=== PATIENT | male | born 1980 | race Caucasian/White ===

== ENCOUNTER → 2017-05-27 | Outpatient (CLI) | payer MEDICARE, OTHER ==
--- NOTE | 2017-05-27 11:00 | US ---
EXAMINATION TYPE: US venous doppler duplex LE DATE OF EXAM: 05/27/2017 10:33 AM COMPARISON: LOWER EXTREMITY VENOUS INSUFFICIENCY SIDE PERFORMED: Bilateral 1) Color flow is present and patency is documented in the following vessels. EIV Common Femoral Vein Deep Femoral Vein Femoral Vein Popliteal Vein Proximal Calf Veins Greater Saph Vein Upper Small Saph Vein 2) There is venous reflux noted at the following venous levels: Right: EIV Common Femoral Vein Deep Femoral Vein Femoral Vein Popliteal Vein Proximal Calf Veins Upper Small Saph Vein Left: EIV Common Femoral Vein Deep Femoral Vein Lower Femoral Vein Mid Popliteal vein Greater Saph Vein There is non-occluding DVT visualized in the right leg from the right CFV to the right lower poplitea l vein. No evidence of left-sided DVT. IMPRESSION: 1.There is non-occluding DVT visualized in the right leg from the right CFV to the right lower poplit eal vein. No evidence of left-sided DVT. 2. Venous reflux as noted above.
== END | disposition home or self-care (01) ==
LOC: RADUSWWP 09:33
PROVIDERS: ATTEND Surgery
DX: I82.411 Acute embolism and thrombosis of right femoral vein (principal); I82.431 Acute embolism and thrombosis of right popliteal vein; I87.2 Venous insufficiency (chronic) (peripheral)
CPT/HCPCS: 93970

== ENCOUNTER 2017-12-26 22:13 | Emergency (ER) | payer MEDICARE, OTHER ==
--- NOTE | 2017-12-26 22:43 | ED ---
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 Patient has vascular ulcers to the bilateral lower extremities for which she follows with Dr. Lazaro vascular surgery. The patient is seen once a week to have his legs were wrapped. She was seen yesterday and had his legs rewrapped. He has been advised that he needs to stay off of his feet as much as possible to facilitate healing, however the patient reports that he has just moved into a new house in his been moving and settling in, in addition the patient does not get disability and does have a job and has been working. 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 He reports that he noticed that his left leg began bleeding. The patient does take is a row toe, he reports the bleeding persisted for an hour and a half which prompted him to come to the ER for further evaluation. At the time of arrival he still had his legs wrapped but it noted that the bleeding has soaked through his route through his sock Patient reports 10 out of 10 pain in the foot, he reports that he has this pain constantly, it's worse with the dressing changes and he has concern about removal of the dressing. Patient reports he has requested multiple times to have his legs amputated due to the chronic pain in the chronic ulcers, however this has been declined by his vascular surgeon. - Related Data Home Medications Medication Instructions Recorded Confirmed Apixaban [Eliquis] 5 mg PO BID 12/26/17 12/26/17 Digoxin [Lanoxin] 125 mcg PO DAILY 12/26/17 12/26/17 Flecainide [Tambocor] 50 mg PO BID 12/26/17 12/26/17 Gabapentin [Neurontin] 200 mg PO Q12H 12/26/17 12/26/17 Ibuprofen [Motrin] 800 mg PO TID PRN 12/26/17 12/26/17 Lisinopril [Prinivil] 20 mg PO DAILY 12/26/17 12/26/17 Sotalol [Betapace] 160 mg PO BID 12/26/17 12/26/17 Allergies Allergy/AdvReac Type Severity Reaction Status Date / Time No Known Allergies Allergy Verified 12/26/17 22:25 Review of Systems ROS Statement: Those systems with pertinent positive or pertinent negative responses have been documented in the HPI. ROS Other: All systems not noted in ROS Statement are negative. Past Medical History Past Medical History: Atrial Fibrillation Additional Past Medical History / Comment(s): hypoplastic heart (R), hole in heart,heart murmur, chronic vascular disease, chronic ulcers on bilateral feet History of Any Multi-Drug Resistant Organisms: None Reported Past Surgical History: Pacemaker Past Psychological History: No Psychological Hx Reported Smoking Status: Current every day smoker Past Alcohol Use History: Rare Past Drug Use History: None Reported General Exam Limitations: no limitations General appearance: alert, in distress Head exam: Present: atraumatic, normocephalic Eye exam: Present: PERRL ENT exam: Present: normal exam Neck exam: Present: full ROM Respiratory exam: Absent: respiratory distress Cardiovascular Exam: Present: regular rate, irregular rhythm, systolic murmur, diastolic murmur, other (No right radial pulse secondary to arterial grafting for his surgery as a .). Absent: normal heart sounds GI/Abdominal exam: Present: soft. Absent: distended Rectal exam: Present: deferred Extremities exam: Present: full ROM, other (Lower extremities are atrophied, pale, there is no hair growth, they appear to have chronic arterial disease, the left leg was unwrapped and noted to have ulcers on the medial malleolus, no active bleeding was noted.) Neurological exam: Present: alert, oriented X3 Psychiatric exam: Present: agitated Skin exam: Present: other (Ulcer on left medial malleolus as noted above) Course Vital Signs 12/26/17 22:19 Temperature 98.1 F Pulse Rate 71 Respiratory 20 Rate Blood Pressure 122/58 O2 Sat by Pulse 97 Oximetry Medical Decision Making - Medical Decision Making The patient was seen and evaluated, history is obtained from the patient, patient very agitated requesting Dilaudid immediately. Patient's leg was unwrapped, there is no active bleeding, there was a significant ulcer to the left medial malleolus, is an arterial ulcer secondary to peripheral artery disease. No signs of infection Patient concerned that there may be infection causing the bleeding, CBC BMP were ordered, morphine ordered for pain management. Labs were reviewed, no leukocytosis was noted, hemoglobin stable Patient reported some improvement in his pain with morphine, patient was observed for over an hour with no recurrent bleeding of his ulcer Expressing considerable frustration with his medical conditions, and desire to have his legs amputated. I advised them that secondary to his complex cardiac history he likely needs to be evaluated by his cardiothoracic surgeon to coordinate for any major surgeries including amputation. Advised him that I can refer him to a different vascular surgeon for evaluation of his legs but likely his surgery will need to be correlated through the [facility] patient's breast understanding of this. Patient remained hemodynamically stable and no bleeding was noted, his leg was wrapped and he was discharged home with referrals for vascular surgery and advised to follow-up with cardiothoracic surgery. He turned parameters were discussed. Patient was advised to stay off of his foot which she has been advised to do so by his vascular surgeon, patient stated that that is not an option for him because he owns a large house and has to work. I offered a work note the patient stated that he didn't need it he cannot afford to be off work. - Lab Data Result diagrams: 12/26/17 22:35 12/26/17 22:35 Lab Results 12/26/17 12/26/17 Range/Units 22:35 22:35 WBC 5.7 (3.8-10.6) k/uL RBC 5.34 (4.30-5.90) m/uL Hgb 15.4 (13.0-17.5) gm/dL Hct 47.5 (39.0-53.0) % MCV 89.0 (80.0-100.0) fL MCH 28.8 (25.0-35.0) pg MCHC 32.3 (31.0-37.0) g/dL RDW 13.0 (11.5-15.5) % Plt Count 142 L (150-450) k/uL Neutrophils % 53 % Lymphocytes % 33 % Monocytes % 8 % Eosinophils % 5 % Basophils % 1 % Neutrophils # 3.0 (1.3-7.7) k/uL Lymphocytes # 1.8 (1.0-4.8) k/uL Monocytes # 0.4 (0-1.0) k/uL Eosinophils # 0.3 (0-0.7) k/uL Basophils # 0.0 (0-0.2) k/uL Sodium 139 (137-145) mmol/L Potassium 4.7 (3.5-5.1) mmol/L Chloride 107 (98-107) mmol/L Carbon Dioxide 22 (22-30) mmol/L Anion Gap 10 mmol/L BUN 24 H (9-20) mg/dL Creatinine 0.90 (0.66-1.25) mg/dL Est GFR (CKD-EPI)AfAm >90 (>60 ml/min/1.73 sqM) Est GFR (CKD-EPI)NonAf >90 (>60 ml/min/1.73 sqM) Glucose 97 (74-99) mg/dL Calcium 10.0 (8.4-10.2) mg/dL Disposition Clinical Impression: Arterial insufficiency with ischemic ulcer Disposition: HOME SELF-CARE Condition: Stable Is patient prescribed a controlled substance at d/c from ED?: No Referrals: None,Stated [Primary Care Provider] - 1-2 days Marylin Baird, [REFERRING] - 1-2 days Time of Disposition: 23:54
[2017-12-26] MEDS ORDERED: diphenhydrAMINE 50 MG/ML 1 ML VIAL IVP STA (23:03)
[2017-12-26] MEDS ORDERED: MORPHINE SULFATE 4 MG/ML SYRINGE IVP STA (23:03)
[2017-12-26 23:17] LABS: Basophils % (A) 1 %; Eosinophils # (A) 0.3 k/uL (0-0.7); Eosinophils % (A) 5 %; HCT 47.5 % (39.0-53.0); HGB 15.4 gm/dL (13.0-17.5); Lymphocytes # (A) 1.8 k/uL (1.0-4.8); Lymphocytes % (A) 33 %; MCH 28.8 pg (25.0-35.0); MCHC 32.3 g/dL (31.0-37.0); Mean Platelet Volume 7.2; Monocytes # (A) 0.4 k/uL (0-1.0); Monocytes % (A) 8 %; Neutrophils % (A) 53 %; Platelet Count 142 k/uL (150-450); RBC 5.34 m/uL (4.30-5.90); WBC 5.7 k/uL (3.8-10.6)
[2017-12-26 23:26] LABS: Anion Gap 10 mmol/L; Blood Urea Nitrogen 24 mg/dL (9-20); Carbon Dioxide 22 mmol/L (22-30); Chloride 107 mmol/L (98-107); Glucose 97 mg/dL (74-99); Potassium 4.7 mmol/L (3.5-5.1); Sodium 139 mmol/L (137-145)
[2017-12-27 00:17] VITALS: BP 125/81; PULSE 81; RESP 18; TEMP 97.6
== END 2017-12-27 00:19 | disposition home or self-care (01) ==
LOC: EC 22:13
DX: I77.1 Stricture of artery (principal); L97.529 Non-pressure chronic ulcer of other part of left foot with unspecified severity; I48.91 Unspecified atrial fibrillation; F17.200 Nicotine dependence, unspecified, uncomplicated; Z79.01 Long term (current) use of anticoagulants; Z79.899 Other long term (current) drug therapy; Z95.0 Presence of cardiac pacemaker
CPT/HCPCS: 36415; 80048; 85025; 99284; 96374; 96375; J2270; J1200

== ENCOUNTER 2024-02-11 09:55 | Emergency (ER) | payer MEDICARE, OTHER ==
[2024-02-11 10:04] VITALS: RESP 18; TEMP 97.3
--- NOTE | 2024-02-11 10:28 | ED ---
Chest Pain HPI - General Chief Complaint: Chest Pain Stated Complaint: chest pain Time Seen by Provider: 02/11/24 10:07 Source: patient, RN notes reviewed Mode of arrival: wheelchair Limitations: no limitations - History of Present Illness Initial Comments: This is a 43 year old male who presents to the emergency department for chest pain. States that it started 2 months ago but is getting worse. Pain is described as a pressure and is essentially constant. Reports associated shortness of breath. Patient has a substantial cardiac history, including hy poplastic heart syndrome, heart failure, and a-fib. He has had multiple cardiac surgeries and still follows with [facility]. States that he called his weight clerk's office regarding his symptoms and was advised to come to the emergency department for evaluation and possible transfer to their facility for evaluation. He spoke with Dr. Benjamin Kinney directly. States that he is also on the list for a heart transplant. MD Complaint: chest pain - Related Data Home Medications Medication Instructions Recorded Confirmed Apixaban [Eliquis] 5 mg PO BID 12/26/17 02/11/24 Sotalol [Betapace] 120 mg PO BID 02/11/24 02/11/24 lisinopriL [Zestril] 5 mg PO DAILY 02/11/24 02/11/24 Allergies Allergy/AdvReac Type Severity Reaction Status Date / Time No Known Allergies Allergy Verified 02/11/24 13:49 Review of Systems ROS Statement: Those systems with pertinent positive or pertinent negative responses have been documented in the HPI. ROS Other: All systems not noted in ROS Statement are negative. Past Medical History Past Medical History: Atrial Fibrillation Additional Past Medical History / Comment(s): hypoplastic heart (R), hole in heart,heart murmur, chronic vascular disease, chronic ulcers on bilateral feet History of Any Multi-Drug Resistant Organisms: None Reported Past Surgical History: Heart Catheterization, Heart Catheterization With Stent, Pacemaker Additional Past Surgical History / Comment(s): 2 tripple bypass, 2 open hearts, double amputations to christiana lower legs Past Psychological History: No Psychological Hx Reported Smoking Status: Never smoker Past Alcohol Use History: Rare Past Drug Use History: None Reported General Exam Limitations: no limitations General appearance: alert, in no apparent distress Head exam: Present: atraumatic, normocephalic, normal inspection Respiratory exam: Present: normal lung sounds bilaterally. Absent: respiratory distress, wheezes, rales, rhonchi, stridor, chest wall tenderness Cardiovascular Exam: Present: regular rate, normal rhythm Neurological exam: Present: alert, oriented X3, CN II-XII intact Psychiatric exam: Present: normal affect, normal mood Skin exam: Present: warm, dry, intact, normal color. Absent: rash Course Vital Signs 02/11/24 02/11/24 02/11/24 09:58 12:28 15:00 Temperature 97.3 F L Pulse Rate 76 67 71 Respiratory 18 18 18 Rate Blood Pressure 110/71 93/60 116/81 O2 Sat by Pulse 92 L 97 97 Oximetry 02/11/24 17:48 Temperature Pulse Rate 78 Respiratory 18 Rate Blood Pressure 118/80 O2 Sat by Pulse 95 Oximetry Chest Pain MDM - MDM This is a 43 year old male who presents to the emergency department for chest pain. Was pt. sent in by a medical professional or institution? @ -No Did you speak to anyone other than the patient for history? @ -No Did you review nursing and triage notes? @ -Yes, and I agree, it is accurate with regards to the patient's symptoms. Were old charts reviewed? @ -No Differential Diagnosis? @ -Differential Chest Pain: Stable Angina, Unstable Angina, STEMI, NSTEMI Aortic Dissection, Pneumothorax, Musculoskeletal, Esophageal Spasm GERD, Cholecystitis, Pancreatitis, Zoster, this is not meant to be an all-inclusive list. EKG interpreted by me (3pts min.)? @ -EKG interpreted by me demonstrating the following: Electronic atrial pacemaker. Ventricular rate 75 bpm, MT interval 198 ms, QRS duration 135 ms, QTc 473 ms. X-rays interpreted by me (1pt min.)? @ -Chest x-ray obtained, my interpretation identifies no localized consolidations or infiltrates. CT interpreted by me (1pt min.)? @ -Not obtained U/S interpreted by me (1pt. min.)? @ -Not obtained What testing was considered but not performed? (CT, X-rays, U/S, labs)? Why? @ -None What meds were considered but not given? Why? @ -None Did you discuss the management of the patient with other professionals? @ -Pediatric cardiology at [facility] who advised that patient could be discharged home given negative workup or transferred there for further observation if felt to be clinically necessary. Did you reconcile home meds? @ -No Was smoking cessation discussed for >3mins.? @ -I discussed smoking cessation for greater than 3 minutes. The risk of smoking were discussed with the patient including but not limited to risks of cancer, stroke, coronary artery disease and COPD. Also discussed with patient were multiple methods of quitting smoking. Lastly we discussed the financial cost of smoking. Was critical care preformed (if so, how long)? @ -No Were there social determinants of health that impacted care today? How? (Homelessness, low income, unemployed, alcoholism, drug addiction, transportation, low edu. Level, literacy, decrease access to med. care, senior care, rehab)? @ -No Was there de-escalation of care discussed even if they declined? (Discuss DNR or withdrawal of care, Hospice)? @ -No What co-morbidities impacted this encounter? (DM, HTN, Smoking, COPD, CAD, Cancer, CVA, Hep., AIDS, mental health diagnosis, sleep apnea, morbid obesity)? @ -Hypoplastic heart syndrome, heart failure, A-fib, smoking Was patient admitted / discharged? @ -Transferred. Lab work unremarkable. Troponin negative. BNP negative. Chest x-ray reveals no acute process. Patient given 324 mg of aspirin and sublingual nitroglycerin without any relief in symptoms. He was then given morphine with some improvement. Due to his substantial cardiac history, case was discussed with cardiology at [facility], where the patient is managed. Discussed that the patient could be discharged home given negative workup, or transferred to their facility for observation if it is felt that it is necessary. Discussed the option of discharge home with the patient given the duration of his symptoms and negative workup. However, states that he is in a lot of pain and is unable to sleep and is scared of going home. Patient requests transfer to [facility] for further care. Patient subsequently transferred to [facility] as an ED to ED transfer for further evaluation. Dr. Doyle, cardiology, is the accepting provider. Patient transferred via EMS in stable condition. Case discussed with ED attending, Dr. Wilkinson. Undiagnosed new problem with uncertain prognosis? @ -None Drug Therapy requiring intensive monitoring for toxicity (Heparin, Nitro, Insulin, Cardizem)? @ -None Were any procedures done? @ -None Diagnosis/symptom? @ -Chest pain Acute, or Chronic, or Acute on Chronic? @ -Chronic Uncomplicated (without systemic symptoms) or Complicated (systemic symptoms)? @ -Complicated Side effects of treatment? @ -None Exacerbation, Progression, or Severe Exacerbation] @ -Not applicable Poses a threat to life or bodily function? @ -Yes, can lead to cardiac arrest and Disposition Clinical Impression: Chest pain, Hypoplastic right heart syndrome, Nicotine dependence Disposition: OTHER INSTITUTION NOT DEFINED Referrals: Nonstaff,Physician [REFERRING] - 1-2 days - Out of Hospital Transfer - Req. Specs Out of Hospital Transfer - Requested Specifics: Other Emergency Center
[2024-02-11 10:53] LABS: Basophils % (A) 1 %; Eosinophils # (A) 0.1 k/uL (0-0.7); Eosinophils % (A) 2 %; HCT 50.9 % (39.0-53.0); HGB 16.9 gm/dL (13.0-17.5); Lymphocytes # (A) 1.3 k/uL (1.0-4.8); Lymphocytes % (A) 27 %; MCH 29.6 pg (25.0-35.0); MCHC 33.2 g/dL (31.0-37.0); MCV 89.1 fL (80.0-100.0); Mean Platelet Volume 7.6; Monocytes # (A) 0.3 k/uL (0-1.0); Monocytes % (A) 5 %; Neutrophils % (A) 63 %; Platelet Count 179 k/uL (150-450); RBC 5.71 m/uL (4.30-5.90); RDW 12.5 % (11.5-15.5); WBC 4.7 k/uL (3.8-10.6)
[2024-02-11] MEDS: NITROGLYCERIN SL TABS 0.4 MG TAB SUBLINGUAL STA ×2 (10:55→11:52)
[2024-02-11] MEDS: ASPIRIN 81 MG PO STA (10:56)
[2024-02-11 11:03] LABS: ALT 26 U/L (4-49); AST 23 U/L (17-59); African American GFR (CKD) >90 (>60 ml/min/1.73 sqM); Albumin 4.6 g/dL (3.5-5.0); Alkaline Phosphatase 66 U/L (38-126); Anion Gap 10 mmol/L; Blood Urea Nitrogen 10 mg/dL (9-20); Calcium 9.7 mg/dL (8.4-10.2); Carbon Dioxide 22 mmol/L (22-30); Chloride 106 mmol/L (98-107); Glucose 105 mg/dL (74-99); Magnesium 1.9 mg/dL (1.6-2.3); Non-African American GFR(CKD) >90 (>60 ml/min/1.73 sqM); Potassium 3.9 mmol/L (3.5-5.1); Sodium 138 mmol/L (137-145); Total Bilirubin 1.7 mg/dL (0.2-1.3); Total Protein 7.4 g/dL (6.3-8.2)
[2024-02-11 11:07] LABS: INR 1.2 (<1.2); Partial Thromboplastin Time 29.5 sec (22.0-30.0); Prothrombin Time 13.1 sec (10.0-12.5)
[2024-02-11 11:09] LABS: NT-Pro-B-Type Natriuretic Pept 206 pg/mL
--- NOTE | 2024-02-11 11:11 | XR ---
EXAMINATION TYPE: XR chest 2V DATE OF EXAM: 02/11/2024 COMPARISON: NONE HISTORY: Chest pain TECHNIQUE: Frontal and lateral views of the chest are obtained. FINDINGS: There is no focal air space opacity. No evidence for pneumothorax. No pleural effusion. Postoperative cardiac changes seen. The cardiac silhouette size is within normal limits. The osseous structures are grossly intact. IMPRESSION: 1. No acute cardiopulmonary process. [facility], , 02/11/2024 11:09 AM
[2024-02-11 11:53] LABS: Appearance,Urine Clear (Clear); Bilirubin,Urine Negative (Negative); Blood,Urine Negative (Negative); Color,Urine Colorless; Glucose,Urine (UA) Negative (Negative); Ketones,Urine Negative (Negative); Leukocyte Esterase,Urine Negative (Negative); Nitrite,Urine Negative (Negative); PH, Urine 5.5 (5.0-8.0); Protein,Urine Negative (Negative); Specific Gravity,Urine 1.005 (1.001-1.035); Urobilinogen,Urine <2.0 mg/dL (<2.0)
[2024-02-11] MEDS: MORPHINE SULFATE 4 MG/ML SYRINGE IVP STA ×2 (12:26→15:47)
[2024-02-11] MEDS: SODIUM CHLORIDE 0.9% 1,000 ML IV STA (12:33)
[2024-02-11 17:51] VITALS: BP 118/80; PULSE 78
== END 2024-02-11 17:51 | disposition other institution (70) ==
LOC: EC 09:55
CPT/HCPCS: 36415; 71046; 80053; 81003; 83735; 83880; 84484; 85025; 85610; 85730; 93005; 96361; 96374; 96376; 99285